=== PATIENT | female | born 1970 | race Two or more races ===

== ENCOUNTER → 2020-02-06 15:55 | Outpatient (BNVA) | payer BC, SELFPAY | PROVIDERS: Family Provider Family Medicine; Visit Provider Family Medicine | DX: Z78.9 Other specified health status (principal); Z01.419 Encounter for gynecological examination (general) (routine) without abnormal findings | CPT/HCPCS: 88175 ==

== ENCOUNTER 2020-08-31 14:38 | Outpatient (CLI) | payer BC, SELFPAY ==
--- NOTE | 2020-08-31 14:42 | MM_ITS ---
WS: [id number] SCREENING DIGITAL MAMMOGRAM WITH CAD HISTORY: SCREENING COMPARISON: 08/08/2019 and 07/27/2018 Bilateral CC and MLO views submitted. Computer aided detection analyzed. Breast composition: There are scattered areas of fibroglandular density. No suspicious masses, microc alcifications or architectural distortion. MM/[place] [id number] IMPRESSION: BI-RADS: 1-Negative FOLLOW UP: 1 Year Follow-up
== END 2020-08-31 14:39 | disposition home or self-care (01) ==
LOC: RADSHAW 14:40
PROVIDERS: PCP Family Medicine; Visit Provider Family Medicine
DX: Z12.31 Encounter for screening mammogram for malignant neoplasm of breast (principal)
CPT/HCPCS: 77067

== ENCOUNTER 2021-09-23 14:31 | Outpatient (CLI) | payer BC, SELFPAY ==
--- NOTE | 2021-09-23 14:36 | MM_ITS ---
WS: [id number] SCREENING DIGITAL MAMMOGRAM WITH CAD HISTORY: SCREENING COMPARISON: 07/01/2017, 01/20/2018, 05/30/2016, 08/31/2020 and 08/08/2019 Bilateral CC and MLO views submitted. Computer aided detection analyzed. Breast composition: There are scattered areas of fibroglandular density. RIGHT CC area of architectur al distortion in the anterior breast. Not definitely seen on the MLO projection. On the RIGHT MLO pro jection there is an 8 mm asymmetry above the nipple line. Also an area of increased density at the ni pple line for which further evaluation is necessary. LEFT breast is negative. MM/[place] [id number] IMPRESSION: BI-RADS: 0-Incomplete: Need additional imaging evaluation FOLLOW UP: Need Additional Imaging RIGHT breast: Spot compression views (CC and MLO). True ML. Ultrasound to follo w if abnormality persists.
== END 2021-09-23 14:32 | disposition home or self-care (01) ==
LOC: RADSHAW 14:34
PROVIDERS: PCP Family Medicine; Visit Provider Family Medicine
DX: Z12.31 Encounter for screening mammogram for malignant neoplasm of breast (principal)
CPT/HCPCS: 77067

== ENCOUNTER 2021-11-05 11:46 | Outpatient (CLI) | payer BC, SELFPAY ==
--- NOTE | 2021-11-05 12:28 | MM_ITS ---
WS: [id number] RIGHT 3D TOMOSYNTHESIS DIGITAL MAMMOGRAPHY WITH CAD CLINICAL INFORMATION: R92.8 - Other abnormal and inconclusive findings on diagn... COMPARISON: September 23, 2021 TECHNIQUE: 6 views of the right breast were obtained. FINDINGS: Scattered fibroglandular densities of the right breast. Again seen is the area of architectural disto rtion in the anterior RIGHT breast best seen on the cc view. Area of architectural distortion partial ly compresses out. Stable 8 mm asymmetry just above the nipple line on the MLO view. Ultrasound is pending. ULTRASOUND BREAST RIGHT TECHNIQUE: Ultrasound right breast focused area of concern. CLINICAL INFORMATION: R92.8 - Other abnormal and inconclusive findings on diagn... COMPARISON: None. FINDINGS: Ultrasound RIGHT breast at the nipple and 9-12:00 positions. No underlying cystic or solid lesions. N ormal underlying dense parenchymal tissue. Minimal ductal ectasia. No lesions to target for biopsy. No lesions to correspond to the mammographic findings. MM/[place] [id number] IMPRESSION: No abnormalities on the ultrasound to correspond to the mammographi c findings. Recommend 6 month follow-up to confirm stability with attention to the 8 mm asymmetry just above the nipple line. BI-RADS: 3-Probably Benign FOLLOW UP: 6 Month Follow-up Recommend 6 month follow-up RIGHT 3-D diagnostic mammography and ultrasound.
--- NOTE | 2021-11-05 13:30 | US_ITS ---
WS: [id number] RIGHT 3D TOMOSYNTHESIS DIGITAL MAMMOGRAPHY WITH CAD CLINICAL INFORMATION: R92.8 - Other abnormal and inconclusive findings on diagn... COMPARISON: September 23, 2021 TECHNIQUE: 6 views of the right breast were obtained. FINDINGS: Scattered fibroglandular densities of the right breast. Again seen is the area of architectural disto rtion in the anterior RIGHT breast best seen on the cc view. Area of architectural distortion partial ly compresses out. Stable 8 mm asymmetry just above the nipple line on the MLO view. Ultrasound is pending. ULTRASOUND BREAST RIGHT TECHNIQUE: Ultrasound right breast focused area of concern. CLINICAL INFORMATION: R92.8 - Other abnormal and inconclusive findings on diagn... COMPARISON: None. FINDINGS: Ultrasound RIGHT breast at the nipple and 9-12:00 positions. No underlying cystic or solid lesions. N ormal underlying dense parenchymal tissue. Minimal ductal ectasia. No lesions to target for biopsy. No lesions to correspond to the mammographic findings. US/US breast RT limited* [id number] IMPRESSION: No abnormalities on the ultrasound to correspond to the mammographi c findings. Recommend 6 month follow-up to confirm stability with attention to the 8 mm asymmetry just above the nipple line. BI-RADS: 3-Probably Benign FOLLOW UP: 6 Month Follow-up Recommend 6 month follow-up RIGHT 3-D diagnostic mammography and ultrasound.
== END 2021-11-05 11:47 | disposition home or self-care (01) ==
LOC: RAD 11:53
PROVIDERS: PCP Family Medicine; Visit Provider Family Medicine
DX: R92.8 Other abnormal and inconclusive findings on diagnostic imaging of breast (principal)
CPT/HCPCS: 76642; 77061

== ENCOUNTER 2022-06-03 17:05 | Outpatient (CLI) | payer BC, SELFPAY ==
--- NOTE | 2022-06-03 17:18 | XRR_ITS ---
PROCEDURE INFORMATION: Exam: XR Chest Exam date and time: 06/03/2022 5:18 PM Age: 51 years old Clinical indication: Cough; Additional info: Chronic cough TECHNIQUE: Imaging protocol: Radiologic exam of the chest. Views: 2 views. COMPARISON: No relevant prior studies available. FINDINGS: Lungs: Mild interstitial prominence without infiltrate. Pleural spaces: No pleural effusion. Heart/Mediastinum: Normal configuration of the heart. Bones/joints: Degenerative change. Gastrointestinal tract: Prominent gastric fluid. XR/XR chest 2V* [id number] IMPRESSION: No acute airspace or pleural disease.
== END 2022-06-03 17:06 | disposition home or self-care (01) ==
LOC: RAD 17:08
PROVIDERS: PCP Family Medicine; Visit Provider Emergency Medicine
DX: R05.9 Cough, unspecified (principal)
CPT/HCPCS: 71046

== ENCOUNTER 2022-06-12 09:13 | Outpatient (CLI) | payer BC, SELFPAY ==
--- NOTE | 2022-06-12 09:46 | MM_ITS ---
WS: [id number] RIGHT 3D TOMOSYNTHESIS DIGITAL MAMMOGRAPHY WITH CAD CLINICAL INFORMATION: 6 MO F/U RT BR HISTORY: Six-month follow-up COMPARISON: November 05, 2021 TECHNIQUE: 3 views of the right breast were obtained. FINDINGS: Scattered fibroglandular densities of the right breast. Previously described architectural distortion in the anterior RIGHT breast best seen on the cc view is unchanged. No progression. This partially c ompresses out on the spot compression views. Ultrasound described below. ULTRASOUND BREAST RIGHT TECHNIQUE: Ultrasound right breast focused area of concern. CLINICAL INFORMATION: 6 MO F/U RT BR FINDINGS: Ultrasound RIGHT breast at8- 9-10 o'clock positions and 2:00, 3:00, and 4:00 positions. Additional ul trasound of the areola was performed. Mild ductal ectasia at the areola. No visualized intraductal le pamella or mass. Echogenic lesion at the 2:00 position 2 cm from the nipple superficial location. Internal cystic cruz ges. This measures approximately 1.3 x 0.5 x 1.8 cm and most likely represents benign lipoma or fibro adenolipoma. Recommend 6 month follow-up to confirm stability. MM/[place] [id number] IMPRESSION: BI-RADS: 3-Probably Benign FOLLOW UP: 6 Month Follow-up Recommend 6 month follow-up ultrasound to confirm stability of the echogenic le pamella at the 2:00 position 2 cm from the nipple.
== END 2022-06-12 09:14 | disposition home or self-care (01) ==
LOC: RAD 09:13
PROVIDERS: PCP Family Medicine; Visit Provider Family Medicine
DX: R92.8 Other abnormal and inconclusive findings on diagnostic imaging of breast (principal)
CPT/HCPCS: 76642; 77061

== ENCOUNTER 2022-12-04 13:06 | Outpatient (CLI) | payer BC, SELFPAY ==
--- NOTE | 2022-12-04 13:27 | US_ITS ---
WS: [id number] ULTRASOUND BREAST RIGHT TECHNIQUE: Ultrasound right breast focused area of concern. CLINICAL INFORMATION: abnormal Mammogram COMPARISON: June 12, 2022 FINDINGS: Ultrasound RIGHT breast 2:00 position 2 cm from the nipple. Previously described echogenic lesion tho ught to represent benign lipoma or fibroadenolipoma is no longer visualized today. Recommend return t o annual screening mammography. US/US breast RT limited* [id number] IMPRESSION: BI-RADS 2 benign FOLLOW UP: Return to annual screening mammography
== END 2022-12-04 13:07 | disposition home or self-care (01) ==
LOC: RAD 13:13
PROVIDERS: PCP Family Medicine; Visit Provider Family Medicine
DX: R92.8 Other abnormal and inconclusive findings on diagnostic imaging of breast (principal)
CPT/HCPCS: 76642

== ENCOUNTER → 2024-04-18 15:44 | Outpatient (BNVA) | payer BC, SELFPAY | PROVIDERS: PCP Family Medicine; Visit Provider Family Medicine | DX: Z12.4 Encounter for screening for malignant neoplasm of cervix (principal) | CPT/HCPCS: 80053; 80061; 85025; 88175 ==